=== PATIENT | female | born 1980 | race Caucasian/White ===

== ENCOUNTER 2022-02-06 01:11 | Emergency (ER) | payer MEDICAID ==
[~2022-02-06] VITALS: Ht 162.6 cm; Wt 73.0 kg
[2022-02-06] MEDS ORDERED: IBUPROFEN 600MG TABLET PO ONE (01:30)
[2022-02-06] MEDS ORDERED: LIDOCAINE HCL/EPINEPHRINE 1%-EPI 1:100,000 20 ML VIAL INFIL ONE (01:30)
[2022-02-06] MEDS ORDERED: TRANEXAMIC ACID 1,000 MG/10 ML TP ONE (01:30)
[2022-02-06] MEDS ORDERED: BACITRACIN ZINC OINT UDPKT TOP ONE (01:30)
[2022-02-06] MEDS ORDERED: LIDOCAINE HCL/EPINEPHRINE 1%-EPI 1:100,000 10 ML VIAL INFIL NR (01:45)
[2022-02-06] MEDS ORDERED: IBUPROFEN 600MG TABLET PO NR (01:45)
[2022-02-06] MEDS ORDERED: BACITRACIN ZINC OINT UDPKT TOP NR (01:45)
[2022-02-06] MEDS ORDERED: SODIUM CHLORIDE 0.9% 1,000 ML IV ONE (02:00)
[2022-02-06 02:18] LABS: BASOPHILS % 0.6 % (0.0-2.0); EOSINOPHILS % 0.2 % (0.0-5.0); HEMATOCRIT. 37.2 % (36.0-48.0); HEMOGLOBIN. 12.1 g/dL (12.0-16.0); LYMPHOCYTES % 29.2 % (20.0-50.0); MEAN CORPUSCULAR HEMOGLOBIN 29.5 pg (28.0-32.0); MEAN CORPUSCULAR VOLUME 91.3 fL (81.0-99.0); MEAN PLATELET VOLUME 9.8 fl (7.4-10.4); MONOCYTES % 3.3 % (2.0-8.0); NEUTROPHILS % 66.7 % (40.0-76.0); PLATELET 232 x1000/uL (130-400); RED BLOOD CELL COUNT 4.08 mill/uL (4.2-5.4); RED CELL DISTRIBUTION WIDTH 15.1 % (11.6-14.6)
[2022-02-06 02:25] LABS: HCG SCREEN NEGATIVE
[2022-02-06 02:26] LABS: CHLORIDE 111 mEq/L (98-107)
[2022-02-06 02:32] LABS: ETHANOL BLOOD 259 mg/dL
[2022-02-06] MEDS ORDERED: CEPH500C2 MT (03:54)
[2022-02-06] MEDS ORDERED: IBUP-2029 MT (03:54)
[2022-02-06 04:00] VITALS: BP 101/64
== END 2022-02-06 07:43 | disposition home or self-care (01) ==
LOC: ER 01:11
DX: S61.411A Laceration without foreign body of right hand, initial encounter (principal); Y04.0XXA Assault by unarmed brawl or fight, initial encounter; Y93.89 Activity, other specified; Y92.89 Other specified places as the place of occurrence of the external cause; Y99.8 Other external cause status
CPT/HCPCS: 12002; 36415; 80053; 80320; 84703; 85025; 96360; 99283; J3490; J7030; Z7610; G0480